=== PATIENT | male | born 1960 | race Caucasian/White ===

== ENCOUNTER 2016-11-12 19:21 | Inpatient (IN) | payer OTHER ==
[~2016-11-12] VITALS: Ht 182.9 cm; Wt 73.2 kg
[~2016-11-12 19:21] MED LIST: FLOVENT DISKUS1 DISK IH; HYDROCODON-ACE1 EAC8 PO; LYRICA150 MG PO; NABUMETONE500 MG PO; NAMENDA10 MG PO; PROAIR HFA8.5 GM IH
[2016-11-12 20:03] VITALS: BP 131/70
[2016-11-12 20:07] LABS: HEMATOCRIT 40.3 % (38.0-50.0); MCHC 34.5 G/DL (30.0-36.0); MEAN PLAT.VOLUME 9.1 uM^3 (9.0-12.4); PLATELET COUNT 152 K/uL (156-360); RBC DIS.WIDTH-CV 12.2 % (11.8-14.6); RED BLOOD COUNT 4.48 M/uL (4.00-5.50); WHITE BLOOD COUNT 8.6 K/uL (4.1-10.2)
[2016-11-12 20:16] LABS: CHLORIDE 104 mEq/L (99-109); POTASSIUM 3.4 mEq/L (3.7-5.4); SODIUM 137 mEq/L (136-147)
[2016-11-12 20:18] LABS: GLUCOSE 88 mg/dL (70-99)
[2016-11-12 20:19] LABS: ANION GAP 9 MEQ/L (2-14)
[2016-11-12 20:22] LABS: GFR ESTIMATE (CALCULATED) > 59 mL/min/
[2016-11-12 20:23] LABS: UREA NITROGEN (BUN) 19 mg/dL (9-23)
[2016-11-12 20:28] LABS: TROP-I INTERPRETATION NEGATIVE; TROPONIN-I 0.01 ng/mL (0.0-0.30)
[2016-11-12 20:59] VITALS: BP 126/67
[2016-11-12 21:59] VITALS: BP 113/74
[2016-11-12 22:59] VITALS: BP 116/69
[2016-11-12] MEDS ORDERED: REQUIP0.5 MG PO (23:10)
[2016-11-12] MEDS ORDERED: ZOLOFT25 MG PO (23:11)
[2016-11-12] MEDS ORDERED: MORPHINE SULFAT15 M1 PO (23:11)
[2016-11-12 23:44] VITALS: BP 109/68
[2016-11-13 01:48] VITALS: BP 104/62
[2016-11-13 06:09] LABS: HEMATOCRIT 40.6 % (38.0-50.0); MCH 30.5 PG (29.0-34.0); MCHC 33.7 G/DL (30.0-36.0); MCV 90.4 FL (86-99); MEAN PLAT.VOLUME 9.7 uM^3 (9.0-12.4); PLATELET COUNT 151 K/uL (156-360); RBC DIS.WIDTH-CV 12.2 % (11.8-14.6); RBC DIS.WIDTH-SD 40.6 % (39-53); RED BLOOD COUNT 4.49 M/uL (4.00-5.50); WHITE BLOOD COUNT 7.7 K/uL (4.1-10.2)
[2016-11-13 07:41] VITALS: BP 116/70
[2016-11-13 11:19] VITALS: BP 130/74
[2016-11-13 15:01] LABS: ADD MIUA? NO; BILIRUBIN NEGATIVE; BLOOD NEGATIVE; COLOR YELLOW ((YELLOW)); GLUCOSE (STRIP) NEGATIVE; KETONES NEGATIVE; LEUKOCYTES NEGATIVE; NITRITE NEGATIVE; PROTEIN (STRIP) NEGATIVE
[2016-11-13 15:26] VITALS: BP 127/66
[2016-11-13 16:03] LABS: SPECIFIC GRAVITY 1.049 (1.000-1.030)
[2016-11-13 20:00] VITALS: BP 111/63
[2016-11-13 23:56] VITALS: BP 112/71
[2016-11-14 04:20] VITALS: BP 117/69
[2016-11-14 06:10] LABS: HEMATOCRIT 39.4 % (38.0-50.0); MCH 31.3 PG (29.0-34.0); MCV 92.1 FL (86-99); MEAN PLAT.VOLUME 9.6 uM^3 (9.0-12.4); PLATELET COUNT 159 K/uL (156-360); RBC DIS.WIDTH-CV 12.5 % (11.8-14.6); RBC DIS.WIDTH-SD 42.3 % (39-53); RED BLOOD COUNT 4.28 M/uL (4.00-5.50); WHITE BLOOD COUNT 6.6 K/uL (4.1-10.2)
[2016-11-14 06:38] LABS: ANION GAP 7 MEQ/L (2-14); CHLORIDE 104 MEQ/L (99-109); GFR ESTIMATE (CALCULATED) > 59 mL/min/; GLUCOSE 123 mg/dL (70-99); SAMPLE HEMOLYSIS CHECK 0; SAMPLE ICTERIC CHECK 0; SAMPLE LIPEMIA CHECK 0; SODIUM 139 MEQ/L (136-147); UREA NITROGEN (BUN) 17 mg/dL (9-23)
[2016-11-14 06:39] LABS: POTASSIUM 4.3 MEQ/L (3.7-5.4)
[2016-11-14] MEDS ORDERED: XARELTO20 MG PO (07:34)
[2016-11-14] MEDS ORDERED: XARELTO15 MG PO (07:34)
[2016-11-14 07:43] VITALS: BP 120/74
== END 2016-11-14 11:19 | disposition home or self-care (01) | DRG 176 ==
LOC: EME 19:21 → EDOF 11-13 00:12 → ENRESERV 11-13 00:15 → 5SOUTH 11-13 01:23
PROVIDERS: Emergency Medicine; Hospitalist; Internal Medicine
DX: I26.99 Other pulmonary embolism without acute cor pulmonale (principal); J44.0 Chronic obstructive pulmonary disease with (acute) lower respiratory infection; R79.1 Abnormal coagulation profile; J98.11 Atelectasis; F03.90 Unspecified dementia, unspecified severity, without behavioral disturbance, psychotic disturbance, mood disturbance, and anxiety; Z87.820 Personal history of traumatic brain injury; Z86.718 Personal history of other venous thrombosis and embolism; Z87.891 Personal history of nicotine dependence; Z81.8 Family history of other mental and behavioral disorders; Z83.2 Family history of diseases of the blood and blood-forming organs and certain disorders involving the immune mechanism
CPT/HCPCS: 71020; 71275; 80048; 81003; 84484; 85027; 85379; 87040; 93005; 93970; 99202; 99281; 99285